=== PATIENT | female | born 1995 | race Caucasian/White ===

== ENCOUNTER 2020-12-26 14:35 | Emergency (ER) | payer BC ==
[~2020-12-26] VITALS: Ht 170.2 cm; Wt 80.0 kg
[2020-12-26 14:39] VITALS: BP 112/73
[2020-12-26] MEDS ORDERED: CEFTRIAXONE SODIUM 500 MG/VIAL IM ONE (15:30)
[2020-12-26] MEDS ORDERED: ONDANSETRON HCL 4MG TABLET PO ONE (15:30)
[2020-12-26] MEDS ORDERED: AZITHROMYCIN 500 MG TABLET PO ONE (15:30)
[2020-12-26 15:50] LABS: CLARITY URINE CLEAR (CLEAR); COLOR URINE YELLOW (YELLOW); KETONES URINE TRACE (NEGATIVE); LEUKOCYTE ESTERASE URINE 2+ (NEGATIVE); NITRITE URINE NEGATIVE (NEGATIVE); OCCULT BLOOD URINE NEGATIVE (NEGATIVE); PH URINE 6.5 (4.5-8.0); PROTEIN URINE NEGATIVE (NEGATIVE); SPECIFIC GRAVITY URINE 1.014 (1.005-1.030); UROBILINOGEN URINE 0.2 E.U./dL (0.2-1.0)
[2020-12-26] MEDS ORDERED: METR-167 PO (16:01)
== END 2020-12-26 16:11 | disposition home or self-care (01) ==
LOC: ER 15:32
DX: N72 Inflammatory disease of cervix uteri (principal); Z20.2 Contact with and (suspected) exposure to infections with a predominantly sexual mode of transmission
CPT/HCPCS: 81003; 81025; 96372; 99283; J0696; Q0162; Z7610